=== PATIENT | female | born 1955 | race Caucasian/White ===

== ENCOUNTER 2016-09-30 19:26 | Emergency (ER) | payer OTHER ==
[~2016-09-30] VITALS: Ht 165.1 cm; Wt 66.8 kg
[2016-09-30 19:32] VITALS: BP 116/79; PULSE 77; RESP 20; O2SAT 96
--- NOTE | 2016-09-30 21:48 | ED.REPORT ---
HPI-Bite: Human/Animal Date of Service Sep 30, 2016 ED Provider: David Murry DO Pt is an otherwise healthy 61 year old female who presents to the ED after a dog bite on her right arm 17 minutes prior to arrival. She c/o associate right arm pain. The pt reports that she was walking her dog, and her friend was walking 3 dogs when the friend's poodle bit came up and bit her. The pt states that she does not know if the dog is utd on rabies shots and that she is not utd on her shots. Nursing Notes Stated Complaint: DOG BITE Chief Complaint: Laceration Nursing Notes Reviewed: Yes Allergies: Coded Allergies: No Known Allergies (Unverified , 09/30/16) General Time Seen by MD: 21:47 Chief Complaint Dog bite Hx Obtained From: Patient Arrived By: Walk-in Onset Occurred: 16 - 30 minutes ago (17) Symptom Duration: Since onset Location: : Forearm right Quality: Painful Severity: Current: Moderate Severity: Maximum: Moderate Context: Immunizations Immunizations: Tetanus not up to date Recent Healthcare: No recent doctor visit, No recent hospitalization Similar Sx Previous: No Past Medical History Past Medical History Denies - healthy Past Surgical History Denies Smoking History Unknown if Ever Smoker Social History Denies Ambulatory Status Independent Review of Systems + Extremity puncture wound Constitutional: Denies: Fever Complete sys rev & neg: except as marked. Musculoskeletal: Reports: Extremity pain, Denies: Extremity swelling Physical Exam Vital Signs Vital Signs (First) Date Time Temp Pulse Resp B/P Pulse Ox O2 Delivery O2 Flow Rate FiO2 09/30/16 19:32 36.2 77 20 116/79 96 Room Air Initial VS: Reviewed Head / Eyes: Atraumatic, Normocephalic Neck: Supple, Full range of motion Respiratory: Breath sounds normal, Clear to auscultation, No respiratory distress Cardiovascular: Regular rate & rhythm, Intact distal pulses Abdomen / GI: Soft, Non-tender Extremities: Vascular intact, Neuro intact Neurologic: Alert, Oriented, Nonfocal Psychiatric: Mood/affect normal, Behavior normal General/Constitutional: Awake, Alert, Cooperative Skin: Warm, Dry Upper Extremity / MS: Neurologic intact, Vascular intact Puncture abrasion on her right forearm. No foreign body was visualized. Re-Eval/Medical Decision Med Decision/Clinical Course Wound was irrigated and dressed. Michaela refused x-rays and she certainly was not a foreign body or fracture. This is a reasonable decision in my opinion. We will place her on Augmentin prophylactically. Dog bite forms have been filled out. Rabies status of the dog will be followed up with. Bounding pulses distally. No evidence of arterial insufficiency or injury. Old records Re-Evaluation/Progress : Time of Eval: 22:59 Re-Evaluation/Progress Note: Pt rechecked. Informed pt of plan for discharge. Pt understands and agrees with plan for discharge. F/U instructions and RTER warnings given. All questions addressed. Counseled Regarding: Diagnosis, Lab results, Need for follow-up, When/why to return to ED Discharge & Departure Impression: Primary Impression: Dog bite of right forearm Encounter type: initial encounter Qualified Code: S51.851A - Open bite of right forearm, initial encounter Disposition: Home Discharge Condition All VS Reviewed: Yes Condition: Stable Patient Instructions: Animal Bite (ED) Additional Instructions: Keep the wound clean, dry, and covered with antibiotic ointment. Take Augmentin 2x daily for 5 days. Watch for signs fo infection: pain, swelling, or redness. Return to the Emergency department if any of these occur. Confirm that the dog has a rabies vaccination or that it is quarantined for 2 weeks. If the dog becomes ill, it will need to be tested for rabies. Referrals: Ricky Daniels MD (PCP/Family) Scribe Attestation Portions of this note were transcribed by Floridalma Mckay. I, Dr. Murry personally performed the history, physical exam and medical decision-making; I reviewed and confirmed the accuracy of the information in the transcribed note. Signed by : Marija Dixon, 09/30/16 and 23:40. copies to: Ricky Daniels MD, Todd P DO Sep 30, 2016 21:48 Floridalma Martinez Sep 30, 2016 22:07
[2016-09-30] MEDS ORDERED: _HYDROcodone/APAP 5-325 mg Tablet PO PRN (22:10)
[2016-09-30] MEDS ORDERED: TdaP Vaccine 0.5 mL Inj IM ONE (22:10)
[2016-09-30] MEDS ORDERED: Amoxicillin-Clav 875-125 mg Tablet PO ONE (22:10)
[2016-09-30 23:17] VITALS: BP 109/72; PULSE 54; RESP 16; O2SAT 96
== END 2016-09-30 23:25 | disposition home or self-care (01) ==
LOC: SED 19:26
DX: S51.851A Open bite of right forearm, initial encounter (principal); W54.0XXA Bitten by dog, initial encounter; Y93.9 Activity, unspecified; Y92.9 Unspecified place or not applicable; Y99.9 Unspecified external cause status; Z23 Encounter for immunization